=== PATIENT | female | born 1995 | race Caucasian/White ===

== ENCOUNTER 2016-09-30 20:39 | Emergency (ER) | payer MEDICAID ==
[2016-09-30 20:56] VITALS: O2SAT 99
[2016-09-30] MEDS ORDERED: Sodium Chloride 0.9% 1000 ML 1,000 ML IV STA (21:35)
--- NOTE | 2016-09-30 21:41 | ERPHSYRPT ---
- History of Present Illness Time Seen by Provider: 09/30/16 21:31 Source: patient Exam Limitations: no limitations Patient Subjective Stated Complaint: i had a baby on august 17 and ramsey been bleeding since then but the last 3 days its been heavy and ramsey been filling up 2 -3 pads per hour. Triage Nursing Assessment: pt alert and oriented, answers questions approp. skin pink warm and dry. pt ambulatory with steady gait noted. respirations nonlabored with lungs cta. pt states vaginal bleeding has been dark and bright red blood, using 2-3 pads an hour. pt states she has not followed up with her ob since she had her baby. Physician History: This is a 21-year-old 4 para 2 white female status post normal vaginal delivery on August 27, 2016 she states she has had vaginal bleeding ever since delivering. She states that for the past 2-3 days she's had increased vaginal bleeding. She states she has occasional dizziness she has no abdominal pain nausea vomiting she has no other complaints she has no chest pain. Patient has not followed up with her family doctor for recheck after delivery. Past medical history includes abnormal uterine bleeding,. Hypercholesterolemia , anxiety, depression. Patient has had a history of gallstones, and eye surgery. Timing/Duration: other (symptoms since August 17 worse the past several days) Modifying Factors: Improves With: nothing Associated Symptoms: No nausea, No vomiting, No abdominal pain, No shortness of breath, No heartburn, No diaphoresis, No cough, No chills, No chest pain, No fever, No headaches, No loss of appetite, No malaise, No rash, No syncope, No seizure, No weakness Allergies/Adverse Reactions: chocolate flavor Allergy (Severe, Verified 09/30/16 20:57) swells throat lamotrigine [From Lamictal] Allergy (Mild, Verified 09/30/16 20:57) Rash Home Medications: No Home Meds 1 [facility] UD 09/30/16 [History] Hx Tetanus, Diphtheria Vaccination/Date Given: Yes Hx Influenza Vaccination/Date Given: No Hx Pneumococcal Vaccination/Date Given: No Immunizations Up to Date: Yes - Review of Systems Constitutional: No Fever, No Chills Eyes: No Symptoms Ears, Nose, & Throat: No Symptoms Respiratory: No Cough, No Dyspnea Cardiac: No Chest Pain, No Edema, No Syncope Abdominal/Gastrointestinal: No Abdominal Pain, No Nausea, No Vomiting, No Diarrhea Genitourinary Symptoms: Vaginal Bleeding, Other (status post normal vaginal delivery August 17, 2016), No Dysuria, No Frequency, No Hematuria, No Hesitancy, No Incontinence, No Urgency, No Urinary Retention, No Flank Pain, No Menorrhagia, No , No Vaginal Discharge, No Vaginal Itching Musculoskeletal: No Back Pain, No Neck Pain Skin: No Rash Neurological: Dizziness (occasional dizziness), No Focal Weakness, No Gait Changes, No Headache, No Irritability, No Lethargy, No Paralysis, No Parasthesia , No Seizure, No Sensory Changes, No Speech Changes, No Tics, No Tremors, No Vertigo Psychological: No Symptoms Endocrine: No Symptoms All Other Systems: Reviewed and Negative - Past Medical History Pertinent Past Medical History: Yes Neurological History: No Pertinent History ENT History: No Pertinent History Cardiac History: High Cholesterol Respiratory History: No Pertinent History Endocrine Medical History: No Pertinent History Musculoskeletal History: No Pertinent History GI Medical History: No Pertinent History History: No Pertinent History Psycho-Social History: Anxiety, Depression Female Reproductive Disorders: Abnormal Uterine Bleeding, Other Other Medical History: MISCARIAGE NOVEMBER 2014 gall stones. Right eye surgery - Past Surgical History Past Surgical History: Yes Neuro Surgical History: No Pertinent History Cardiac: No Pertinent History Respiratory: No Pertinent History Gastrointestinal: No Pertinent History Genitourinary: No Pertinent History Musculoskeletal: No Pertinent History Female Surgical History: No Pertinent History Other Surgical History: JENNIFER FISTURES--UNSURE OF SPECIFIC--AGE 3 MONTHS OLD - Social History Smoking Status: Former smoker How long have you smoked: 3 Exposure to second hand smoke: Yes Drug Use: none Patient Lives Alone: No - Female History Hx Last Menstrual Period: current - Nursing Vital Signs Nursing Vital Signs: Initial Vital Signs Temperature 97.2 F Temperature Source Oral Pulse Rate 87 Respiratory Rate 18 Blood Pressure 101/60 Pain Intensity 9 - Physical Exam General Appearance: no apparent distress, alert Eye Exam: PERRL/EOMI, eyes nml inspection Ears, Nose, Throat Exam: normal ENT inspection, TMs normal, pharynx normal, moist mucous membranes Neck Exam: normal inspection, non-tender, supple, full range of motion Respiratory Exam: normal breath sounds, lungs clear, No respiratory distress Cardiovascular Exam: regular rate/rhythm, normal heart sounds, normal peripheral pulses Gastrointestinal/Abdomen Exam: soft, normal bowel sounds, No tenderness, No mass Pelvic Exam: other (pelvic examination, normal external female genitalia cervix is closed small amount of bleeding small amount of blood in vaginal vault uterus nontender.) Back Exam: normal inspection, normal range of motion, No CVA tenderness, No vertebral tenderness Extremity Exam: normal inspection, normal range of motion, pelvis stable Neurologic Exam: alert, oriented x 3, cooperative, normal mood/affect, nml cerebellar function, nml station & gait, sensation nml, No motor deficits Skin Exam: normal color, warm, dry, No rash SpO2 Interpretation: normal (99%) SpO2: 99 Oxygen Delivery: Room Air Ordered Tests: Active Orders 24 hr Category Date Time Status IV Insertion STAT Care 09/30/16 21:35 Active Orthostatic Vital Signs STAT Care 09/30/16 21:37 Active Pelvic Exam Assist STAT Care 09/30/16 21:35 Active BMP Stat Lab 09/30/16 21:45 Completed CBC W DIFF Stat Lab 09/30/16 21:45 Completed HCG QUALITATIVE,SERUM Stat Lab 09/30/16 21:45 Completed Manual Differential NC Stat Lab 09/30/16 21:45 Completed Wet Prep Stat Lab 09/30/16 23:30 Completed Medication Summary Discontinued Medications Generic Name Dose Route Start Last Admin Trade Name Freq PRN Reason Stop Dose Admin Sodium Chloride 1,000 mls @ 999 mls/hr 09/30/16 21:35 09/30/16 21:47 Sodium Chloride 0.9% 1000 Ml IV 09/30/16 22:35 999 mls/hr .Q1H1M STA Administration Sodium Chloride Confirm 09/30/16 21:45 Sodium Chloride 0.9% 1000 Ml Administered 09/30/16 21:46 Dose 1,000 mls @ ud .ROUTE .STK-MED ONE Lab/Rad Data: Laboratory Result Diagrams 09/30/16 21:45 09/30/16 21:45 Laboratory Results 09/30/16 09/30/16 09/30/16 Range/Units 23:30 21:45 21:45 WBC (4.0-10.5) K/mm3 RBC (4.1-5.4) M/mm3 Hgb (12.0-16.0) gm/dl Hct (35-47) % MCV (78-100) fl MCH (26-32) pg MCHC (32-36) g/dl RDW (11.5-14.0) % Plt Count (150-450) K/mm3 MPV (6-9.5) fl Segmented Neutrophils (36.0-66.0) % Lymphocytes (Manual) (24-44) % Monocytes (Manual) (0.0-12.0) % Eosinophils (Manual) (0.00-3.0) % Differential Comment Platelet Estimate (NORMAL) Sodium 142 (136-145) mEq/L Potassium 4.5 (3.5-5.1) mEq/L Chloride 107 (98-107) mEq/L Carbon Dioxide 30.0 (21-32) mEq/L Anion Gap 9.3 (5-15) MEQ/L BUN 10 (9-20) mg/dL Creatinine 0.65 (0.55-1.30) mg/dl Estimated GFR > 60 ML/MIN Glucose 84 (70-110) MG/DL Calcium 8.6 (8.5-10.1) mg/dL Serum , Qual NEGATIVE (Negative) WBC (Wet Prep) Rare RBC (Wet Prep) Moderate Epi Cells (Wet Prep) Few Bacteria (Wet Prep) Rare Clue Cells (Wet Prep) None Seen Trichomonas (Wet Prep) None Seen Budding Yeast (Wet Prp) None Seen 09/30/16 Range/Units 21:45 WBC 9.8 (4.0-10.5) K/mm3 RBC 4.45 (4.1-5.4) M/mm3 Hgb 11.6 L (12.0-16.0) gm/dl Hct 37.3 (35-47) % MCV 83.8 (78-100) fl MCH 26.0 (26-32) pg MCHC 31.1 L (32-36) g/dl RDW 14.0 (11.5-14.0) % Plt Count 126 L (150-450) K/mm3 MPV 11.9 H (6-9.5) fl Segmented Neutrophils 63 (36.0-66.0) % Lymphocytes (Manual) 28 (24-44) % Monocytes (Manual) 6 (0.0-12.0) % Eosinophils (Manual) 3 (0.00-3.0) % Differential Comment NORMAL Platelet Estimate DECREASED (NORMAL) Sodium (136-145) mEq/L Potassium (3.5-5.1) mEq/L Chloride (98-107) mEq/L Carbon Dioxide (21-32) mEq/L Anion Gap (5-15) MEQ/L BUN (9-20) mg/dL Creatinine (0.55-1.30) mg/dl Estimated GFR ML/MIN Glucose (70-110) MG/DL Calcium (8.5-10.1) mg/dL Serum , Qual (Negative) WBC (Wet Prep) RBC (Wet Prep) Epi Cells (Wet Prep) Bacteria (Wet Prep) Clue Cells (Wet Prep) Trichomonas (Wet Prep) Budding Yeast (Wet Prp) - Departure Time of Disposition: 00:31 Departure Disposition: Home Clinical Impression: Vaginal bleeding, Status post normal vaginal delivery Condition: Fair Critical Care Time: No Referrals: CAROLYN NASH MD [Primary Care Provider] - Additional Instructions: Return home. Plenty of fluids rest. Nothing in your vagina. Follow-up with your family doctor/interpreter for the deaf call tomorrow morning. Return for acute distress or for severe symptoms.
[2016-09-30] MEDS ORDERED: Sodium Chloride 0.9% 1000 ML 1,000 ML ONE (21:45)
[2016-09-30 22:02] LABS: Mean Cell Volume 83.8 fl (78-100); Mean Platelet Volume 11.9 fl (6-9.5); Platelet Count 126 K/mm3 (150-450); Red Blood Count 4.45 M/mm3 (4.1-5.4); White Blood Count 9.8 K/mm3 (4.0-10.5)
[2016-09-30 22:14] LABS: ANION GAP 9.3 MEQ/L (5-15); BLOOD UREA NITROGEN 10 mg/dL (9-20); CHLORIDE 107 mEq/L (98-107); Glucose 84 MG/DL (70-110); Potassium 4.5 mEq/L (3.5-5.1); SODIUM 142 mEq/L (136-145)
[2016-09-30 23:34] LABS: Eosinophil 3 % (0.00-3.0); Total Cells Counted 100
[2016-09-30 23:35] LABS: Platelet Estimate DECREASED (NORMAL)
[2016-10-01 00:21] LABS: Bacteria Rare; Clue Cells None Seen; Trichomonas None Seen; Yeast None Seen
[2016-10-01 00:44] VITALS: BP 142/88; PULSE 88
[2016-10-01 01:16] LABS: CHLAMYDIA DNA NEGATIVE
== END 2016-10-01 00:43 | disposition home or self-care (01) ==
LOC: ED 20:39
DX: O72.1 Other immediate postpartum hemorrhage (principal)
CPT/HCPCS: 36000; 36415; 80048; 84703; 85025; 87210; 87490; 87590; 96360; 96361; 99283

== ENCOUNTER 2016-11-14 00:05 | Emergency (ER) | payer MEDICAID ==
--- NOTE | 2016-11-14 00:56 | ERPHSYRPT ---
- History of Present Illness Time Seen by Provider: 11/14/16 00:42 Historian: patient Exam Limitations: no limitations Patient Subjective Stated Complaint: pt states shes been having pain from her gallbladder for the last 2 weeks, worse tonight. Triage Nursing Assessment: pt alert and oriented, answers questions approp. pt ambulatory with steady gait noted. skin pink warm and dry. respirations nonlabored with lungs cta. abd soft with tenderness to rt side. pt states she has been passing flatus. Physician History: FOR THE PAST 2 WEEKS PT HAS HAD UPPER ABDOMINAL PAIN AND NAUSEA; FOR THE PAST 2 DAYS SORE THROAT. PT WAS DIAGNOSED WITH CHOLELITHIASIS 2 YEARS AGO BY ULTRASOUND. LMP WAS 10/22/16 BUT SHORTER THAN USUAL, 2 DAYS. PT DENIES VOMITING, DIARRHEA, CHEST PAIN, FEVER. Allergies/Adverse Reactions: chocolate flavor Allergy (Severe, Verified 11/14/16 00:16) swells throat lamotrigine [From Lamictal] Allergy (Mild, Verified 11/14/16 00:16) Rash Home Medications: No Home Meds 1 [facility] UD 09/30/16 [History] Hx Tetanus, Diphtheria Vaccination/Date Given: Yes Hx Influenza Vaccination/Date Given: No Hx Pneumococcal Vaccination/Date Given: No Immunizations Up to Date: Yes - Review of Systems Constitutional: No Fever Ears, Nose, & Throat: Throat Pain Respiratory: No Cough Cardiac: No Chest Pain Abdominal/Gastrointestinal: Abdominal Pain, Nausea, No Vomiting, No Diarrhea Neurological: No Headache Endocrine: No Excessive Sweating All Other Systems: Reviewed and Negative - Past Medical History Pertinent Past Medical History: Yes Neurological History: No Pertinent History ENT History: No Pertinent History Cardiac History: High Cholesterol Respiratory History: No Pertinent History Endocrine Medical History: No Pertinent History Musculoskeletal History: No Pertinent History GI Medical History: No Pertinent History History: No Pertinent History Psycho-Social History: Anxiety, Depression Female Reproductive Disorders: Abnormal Uterine Bleeding, Other Other Medical History: MISCARIAGE NOVEMBER 2014 gall stones. Right eye surgery - Past Surgical History Past Surgical History: Yes Neuro Surgical History: No Pertinent History Cardiac: No Pertinent History Respiratory: No Pertinent History Gastrointestinal: No Pertinent History Genitourinary: No Pertinent History Musculoskeletal: No Pertinent History Female Surgical History: No Pertinent History Other Surgical History: JENNIFER FISTURES--UNSURE OF SPECIFIC--AGE 3 MONTHS OLD - Social History Smoking Status: Current every day smoker How long have you smoked: 3 Exposure to second hand smoke: Yes Drug Use: none Patient Lives Alone: No - Female History Hx Last Menstrual Period: 10/22/16 - Nursing Vital Signs Nursing Vital Signs: Initial Vital Signs Temperature 98.2 F Temperature Source Oral Pulse Rate 98 Respiratory Rate 16 Blood Pressure [Right Arm] 112/63 Pain Intensity 5 - Physical Exam General Appearance: no apparent distress, alert Eye Exam: PERRL/EOMI Ears, Nose, Throat Exam: TMs normal, pharynx normal, moist mucous membranes Neck Exam: normal inspection Respiratory Exam: lungs clear Cardiovascular Exam: normal heart sounds Gastrointestinal/Abdomen Exam: soft, normal bowel sounds, tenderness (MILD SUPRAPUBIC > RUQ TENDERNESS), No guarding Back Exam: normal range of motion Extremity Exam: normal inspection, No pedal edema Neurologic Exam: alert, cooperative Skin Exam: warm, dry SpO2 Interpretation: normal SpO2: 100 Oxygen Delivery: Room Air - Course Nursing assessment & vital signs reviewed: Yes Ordered Tests: Active Orders 24 hr Category Date Time Status Clean Catch Urine Specimen STAT Care 11/14/16 01:11 Active AMYLASE Stat Lab 11/14/16 01:05 Completed CBC W DIFF Stat Lab 11/14/16 01:05 Completed CMP Stat Lab 11/14/16 01:05 Completed CULTURE,URINE Stat Lab 11/14/16 02:00 Ordered HCG QUALITATIVE,SERUM Stat Lab 11/14/16 01:05 Completed LIPASE Stat Lab 11/14/16 01:05 Completed UA W/ MICROSCOPIC Stat Lab 11/14/16 00:28 Completed Urine Triage Profile Stat Lab 11/14/16 00:28 Completed Medication Summary Discontinued Medications Generic Name Dose Route Start Last Admin Trade Name Arianne PRN Reason Stop Dose Admin Acetaminophen/Hydrocodone Bitart 2 tab 11/14/16 02:01 [place] 5/325 Mg PO 11/14/16 02:02 STAT ONE Ceftriaxone Sodium 1,000 mg 11/14/16 02:01 Rocephin 1000 Mg Inj IM 11/14/16 02:02 STAT ONE Lab/Rad Data: Laboratory Result Diagrams 11/14/16 01:05 11/14/16 01:05 Laboratory Results 11/14/16 11/14/16 11/14/16 Range/Units 01:05 01:05 01:05 WBC 12.9 H (4.0-10.5) K/mm3 RBC 4.93 (4.1-5.4) M/mm3 Hgb 12.6 (12.0-16.0) gm/dl Hct 40.3 (35-47) % MCV 81.7 (78-100) fl MCH 25.6 L (26-32) pg MCHC 31.3 L (32-36) g/dl RDW 14.4 H (11.5-14.0) % Plt Count 324 (150-450) K/mm3 MPV 11.3 H (6-9.5) fl Gran % 54.6 (36.0-66.0) % Lymphocytes % 30.8 (24.0-44.0) % Monocytes % 10.7 (0.0-12.0) % Eosinophils % 3.7 (0.00-5.0) % Basophils % 0.2 (0.0-0.4) % Basophils # 0.03 (0-0.4) Sodium 144 (136-145) mEq/L Potassium 3.7 (3.5-5.1) mEq/L Chloride 107 (98-107) mEq/L Carbon Dioxide 26.0 (21-32) mEq/L Anion Gap 14.8 (5-15) MEQ/L BUN 11 (9-20) mg/dL Creatinine 0.74 (0.55-1.30) mg/dl Estimated GFR > 60 ML/MIN Glucose 96 (70-110) MG/DL Calcium 8.9 (8.5-10.1) mg/dL Total Bilirubin 0.2 (0.2-1.0) mg/dL AST 16 (15-37) U/L ALT 33 (12-78) U/L Alkaline Phosphatase 120 H (46-116) U/L Serum Total Protein 7.5 (6.4-8.2) gm/dL Albumin 3.8 (3.4-5.0) g/dL Amylase 53 (25-115) U/L Lipase 192 (73-393) U/L Serum , Qual NEGATIVE (Negative) Ur Collection Type Urine Color (YELLOW) Urine Appearance (CLEAR) Urine pH (5-6) Ur Specific [place] (1.005-1.025) Urine Protein (Negative) Urine Glucose (UA) (NEGATIVE) mg/dL Urine Ketones (NEGATIVE) Urine Nitrite (NEGATIVE) Urine Bilirubin (NEGATIVE) Urine Urobilinogen (0-1) mg/dL Urine WBC (Auto) (NEGATIVE) Urine RBC (Auto) (0-5) Berry/ul Urine Microscopic RBC (0-2) /HPF Urine Microscopic WBC (0-5) /HPF Ur Epithelial Cells (FEW) /HPF Urine Bacteria (NEGATIVE) /HPF Urine Opiates Level (NEGATIVE) Ur Methadone (NEGATIVE) Urine Barbiturates (NEGATIVE) Ur Phencyclidine (PCP) (NEGATIVE) Urine Amphetamine (NEGATIVE) U Benzodiazepine Level (NEGATIVE) Urine Cocaine (NEGATIVE) Urine Marijuana (THC) (NEGATIVE) Specimen Received 11/14/16 11/14/16 Range/Units 00:28 00:28 WBC (4.0-10.5) K/mm3 RBC (4.1-5.4) M/mm3 Hgb (12.0-16.0) gm/dl Hct (35-47) % MCV (78-100) fl MCH (26-32) pg MCHC (32-36) g/dl RDW (11.5-14.0) % Plt Count (150-450) K/mm3 MPV (6-9.5) fl Gran % (36.0-66.0) % Lymphocytes % (24.0-44.0) % Monocytes % (0.0-12.0) % Eosinophils % (0.00-5.0) % Basophils % (0.0-0.4) % Basophils # (0-0.4) Sodium (136-145) mEq/L Potassium (3.5-5.1) mEq/L Chloride (98-107) mEq/L Carbon Dioxide (21-32) mEq/L Anion Gap (5-15) MEQ/L BUN (9-20) mg/dL Creatinine (0.55-1.30) mg/dl Estimated GFR ML/MIN Glucose (70-110) MG/DL Calcium (8.5-10.1) mg/dL Total Bilirubin (0.2-1.0) mg/dL AST (15-37) U/L ALT (12-78) U/L Alkaline Phosphatase (46-116) U/L Serum Total Protein (6.4-8.2) gm/dL Albumin (3.4-5.0) g/dL Amylase (25-115) U/L Lipase (73-393) U/L Serum , Qual (Negative) Ur Collection Type CLEAN CATCH Urine Color YELLOW (YELLOW) Urine Appearance CLEAR (CLEAR) Urine pH 5.5 (5-6) Ur Specific [place] 1.025 (1.005-1.025) Urine Protein NEGATIVE (Negative) Urine Glucose (UA) NEGATIVE (NEGATIVE) mg/dL Urine Ketones NEGATIVE (NEGATIVE) Urine Nitrite NEGATIVE (NEGATIVE) Urine Bilirubin NEGATIVE (NEGATIVE) Urine Urobilinogen 0.2 (0-1) mg/dL Urine WBC (Auto) SMALL (NEGATIVE) Urine RBC (Auto) NEGATIVE (0-5) Berry/ul Urine Microscopic RBC 2-5 (0-2) /HPF Urine Microscopic WBC 5-10 (0-5) /HPF Ur Epithelial Cells MANY (FEW) /HPF Urine Bacteria MODERATE (NEGATIVE) /HPF Urine Opiates Level NEG. (NEGATIVE) Ur Methadone NEG. (NEGATIVE) Urine Barbiturates NEG. (NEGATIVE) Ur Phencyclidine (PCP) NEG. (NEGATIVE) Urine Amphetamine NEG. (NEGATIVE) U Benzodiazepine Level NEG. (NEGATIVE) Urine Cocaine NEG. (NEGATIVE) Urine Marijuana (THC) NEG. (NEGATIVE) Specimen Received 11/14/16 0115 - Departure Time of Disposition: 02:07 Departure Disposition: Home Clinical Impression: UTI Condition: Fair Critical Care Time: No Instructions: Abdominal Pain-Adult, Urinary Tract Infection (UTI) Additional Instructions: FOLLOW UP WITH PRIVATE DOCTOR TOMORROW. Prescriptions: Smz/Tmp Ds Tablet [Bactrim Ds Tablet] 1 udtab PO BID #20 tablet
[2016-11-14 01:15] LABS: BASOPHIL % 0.2 % (0.0-0.4); Eosinophil % 3.7 % (0.00-5.0); Granulocytes % 54.6 % (36.0-66.0); Lymphocytes % 30.8 % (24.0-44.0); Mean Cell Volume 81.7 fl (78-100); Mean Corpuscular Hemoglobin 25.6 pg (26-32); Mean Platelet Volume 11.3 fl (6-9.5); Monocytes % 10.7 % (0.0-12.0); Platelet Count 324 K/mm3 (150-450); Red Blood Count 4.93 M/mm3 (4.1-5.4); Red Cell Distribution Width 14.4 % (11.5-14.0); White Blood Count 12.9 K/mm3 (4.0-10.5)
[2016-11-14 01:35] LABS: Bacteria MODERATE /HPF (NEGATIVE); COMPLETE URINE MICROSCOPIC? YES; Collection Type CLEAN CATCH; Epithelial Cells MANY /HPF (FEW); Ph 5.5 (5-6)
[2016-11-14 01:48] LABS: ALBUMIN 3.8 g/dL (3.4-5.0); ALKALINE PHOSPHATASE 120 U/L (46-116); ANION GAP 14.8 MEQ/L (5-15); BILIRUBIN,TOTAL 0.2 mg/dL (0.2-1.0); BLOOD UREA NITROGEN 11 mg/dL (9-20); CHLORIDE 107 mEq/L (98-107); Glucose 96 MG/DL (70-110); LIPASE 192 U/L (73-393); Potassium 3.7 mEq/L (3.5-5.1); SGOT/AST 16 U/L (15-37); SGPT/ALT 33 U/L (12-78); SODIUM 144 mEq/L (136-145); Total Protein 7.5 gm/dL (6.4-8.2)
[2016-11-14 02:00] VITALS: PULSE 98
[2016-11-14] MEDS ORDERED: Rocephin 1000 MG INJ IM ONE (02:01)
[2016-11-14] MEDS ORDERED: NORCO 5/325 MG PO ONE (02:01)
[2016-11-14] MEDS ORDERED: NORCO 5/325 MG ONE (02:11)
[2016-11-14] MEDS ORDERED: XYLOCAINE 1% HCL 20 ML MDV ONE (02:11)
[2016-11-14] MEDS ORDERED: Rocephin 1000 MG INJ ONE (02:11)
[2016-11-14 02:44] VITALS: BP 108/75; O2SAT 98
== END 2016-11-14 02:43 | disposition home or self-care (01) ==
LOC: ED 00:05
DX: N39.0 Urinary tract infection, site not specified (principal); R10.10 Upper abdominal pain, unspecified; R11.0 Nausea
CPT/HCPCS: 36415; 80053; 80307; 81000; 82150; 83690; 84703; 85025; 87086; 96372; 99283; 99284; J0696

== ENCOUNTER 2017-06-05 13:31 | Emergency (ER) | payer MEDICAID, OTHER ==
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
[2017-06-05 14:38] LABS: BASOPHIL % 0.3 % (0.0-0.4); Eosinophil % 1.3 % (0.00-5.0); Granulocytes % 71.9 % (36.0-66.0); Lymphocytes % 17.4 % (24.0-44.0); Mean Cell Volume 79.2 fl (78-100); Mean Corpuscular Hemoglobin 25.8 pg (26-32); Monocytes % 9.1 % (0.0-12.0); Platelet Count 277 K/mm3 (150-450); Red Blood Count 4.76 M/mm3 (4.1-5.4); Red Cell Distribution Width 14.6 % (11.5-14.0); White Blood Count 12.7 K/mm3 (4.0-10.5)
[2017-06-05 15:26] LABS: Bacteria Many; Clue Cells Few
[2017-06-05 15:27] LABS: Trichomonas None Seen; Yeast None Seen
[2017-06-05 15:45] LABS: ANION GAP 13.6 MEQ/L (5-15); BLOOD UREA NITROGEN 3 mg/dL (9-20); CHLORIDE 106 mEq/L (98-107); Carbon Dioxide 23.7 mEq/L (21-32); Glucose 115 MG/DL (70-110); HCG, Quantitative (Inhouse) 46171 IU/L (0-6); Potassium 3.9 mEq/L (3.5-5.1); SODIUM 139 mEq/L (136-145)
--- NOTE | 2017-06-05 16:07 | XRAY ---
Exam: OB ultrasound less than 14 weeks from 06/05/2017. Comparison: None from this . Indication: Vaginal bleeding. Technique: It appears that the technologist took 2 transabdominal images and then switched to a transvaginal ultrasound exam. An unremarkable shaped and positioned gestational sac is seen within a retroflexed maternal uterus. No subchorionic hemorrhage or abnormal fluid is seen within the endometrial canal. A single live intrauterine pole is seen. The cardiac activity is 119 beats per minute. The crown lump length measures an average of 6.6 mm consistent with a gestational age of 6 weeks 4 days with estimated due date of 01/25/2018. This is 8 days behind that anticipated by the gestational age by dates (LMP). The cardiac catheterization technologist left a note that movement was seen. There appears to be a small adjacent yolk sac. Both maternal ovaries are identified and appear unremarkable oval-shape, size, and echogenicity. Impression: 1. Single live intrauterine fetus within a normal shaped and positioned gestational sac within the upper maternal uterine segment. Incidentally, the maternal uterus is retroflexed. 2. The crown-rump length measures an average of 6.6 mm consistent with a gestational age of 6 weeks 4 days with an estimated due date of 01/25/2018. 3. The heart rate measures 119 bpm.
[2017-06-05 16:10] LABS: ADD URINE CULTURE? NO (NO); Bilirubin NEGATIVE (NEGATIVE); Blood NEGATIVE Ery/ul (0-5); COMPLETE URINE MICROSCOPIC? NO; Collection Type CLEAN CATCH; Glucose NEGATIVE (NEGATIVE); Leukocyte Esterase NEGATIVE (NEGATIVE)
[2017-06-05 16:23] VITALS: BP 103/64; PULSE 79; O2SAT 98
[2017-06-05 16:56] LABS: CHLAMYDIA DNA NEGATIVE
== END 2017-06-05 16:43 | disposition home or self-care (01) ==
LOC: ED 13:31
DX: O20.0 Threatened abortion (principal)
CPT/HCPCS: 36000; 36415; 76801; 80048; 81002; 84702; 85025; 87210; 87490; 87590; 99284

== ENCOUNTER 2018-01-09 00:35 | Inpatient (IN) | payer OTHER ==
[2018-01-09 02:18] LABS: Amphetamine,Urine NEGATIVE (NEGATIVE); Barbiturate,Urine NEGATIVE (NEGATIVE); Benzodiazepine,Urine NEGATIVE (NEGATIVE); Cocaine,Urine NEGATIVE (NEGATIVE); Methadone,Urine NEGATIVE (NEGATIVE); Opiate,Urine NEGATIVE (NEGATIVE); PCP,Urine NEGATIVE (NEGATIVE); THC,Urine NEGATIVE (NEGATIVE)
[2018-01-09] MEDS ORDERED: Lactated Ringers 1,000 ML IV ONE (09:17)
[2018-01-09] MEDS ORDERED: OB EPIDURAL NAROPIN/SUFENTANIL IN NACL EPIDURAL PRN (09:17)
[2018-01-09] MEDS ORDERED: Ephedrine Sulfate 50 MG/ML IV PRN (09:17)
[2018-01-09 09:27] LABS: Granulocyte Absolute (ANC) 8.54 (1.4-6.9); Hematocrit 31.8 % (35-47); Mean Corpuscular Hgb Concent. 31.4 g/dl (32-36); Mean Platelet Volume 12.1 fl (6-9.5); Platelet Count 219 K/mm3 (150-450); Red Blood Count 3.88 M/mm3 (4.1-5.4); Red Cell Distribution Width 15.5 % (11.5-14.0); White Blood Count 13.4 K/mm3 (4.0-10.5)
[2018-01-09] MEDS ORDERED: Lactated Ringers 1,000 ML IV SCH (09:30)
[2018-01-09] MEDS ORDERED: PITOCIN 30 UNITS/ LR 500 ML 500 ML IV SCH (09:30)
[2018-01-09 09:34] LABS: Mean Corpuscular Hemoglobin 25.7 pg (26-32)
[2018-01-09] MEDS ORDERED: XYLOCAINE 1% HCL 20 ML MDV IJ ONE (10:00)
[2018-01-09] MEDS ORDERED: XYLOCAINE 1% HCL 20 ML MDV ONE (10:15)
[2018-01-09 10:24] LABS: Eosinophil 3 % (0.00-3.0); Lymphocytes 24 % (24-44); Neutrophils 73 % (36.0-66.0); Total Cells Counted 100
[2018-01-09 10:25] LABS: Platelet Estimate NORMAL (NORMAL)
[2018-01-09] MEDS ORDERED: Mylicon 80MG PO PRN (12:35)
[2018-01-09] MEDS ORDERED: Dulcolax 10 MG SUPP PR PRN (12:35)
[2018-01-09] MEDS ORDERED: Ambien 10 MG PO PRN (12:35)
[2018-01-09] MEDS ORDERED: TUCKS TP PRN (12:35)
[2018-01-09] MEDS ORDERED: CORTISONE 1% CREAM TP PRN (12:35)
[2018-01-09] MEDS ORDERED: Dermoplast Spray TP PRN (12:35)
[2018-01-09] MEDS ORDERED: LANSINOH 40 GM TOP PRN (12:35)
[2018-01-09] MEDS ORDERED: TYLENOL EXTRA STRENGTH 500 MG PO PRN (12:35)
[2018-01-09] MEDS ORDERED: Anucort-HC SUPPOSITORY PR PRN (12:35)
[2018-01-09] MEDS ORDERED: NORCO 5/325 MG PO PRN (12:35)
[2018-01-09 14:14] VITALS: O2SAT 100
[2018-01-09] MEDS: Colace 100 MG PO SCH (21:02)
[2018-01-09] MEDS: MOTRIN 400 MG PO PRN (21:10)
[2018-01-10] MEDS: MOTRIN 400 MG PO PRN ×2 (04:14→19:33)
[2018-01-10 05:52] LABS: Granulocyte Absolute (ANC) 8.17 (1.4-6.9); Hematocrit 28.7 % (35-47); Hemoglobin 8.9 gm/dl (12.0-16.0); Mean Cell Volume 83.2 fl (78-100); Mean Platelet Volume 12.2 fl (6-9.5); Platelet Count 204 K/mm3 (150-450); Red Blood Count 3.45 M/mm3 (4.1-5.4); Red Cell Distribution Width 15.4 % (11.5-14.0); White Blood Count 12.9 K/mm3 (4.0-10.5)
[2018-01-10 05:59] LABS: Mean Corpuscular Hemoglobin 25.7 pg (26-32)
[2018-01-10 06:39] LABS: Eosinophil 2 % (0.00-3.0); Lymphocytes 24 % (24-44); Monocyte 10 % (0.0-12.0); Neutrophils 64 % (36.0-66.0); Platelet Estimate NORMAL (NORMAL); Total Cells Counted 100
[2018-01-10] MEDS: FERREX 150 PO SCH (10:16)
[2018-01-10] MEDS: Colace 100 MG PO SCH ×2 (10:16→21:36)
[2018-01-11] MEDS: MOTRIN 400 MG PO PRN (04:53)
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
[2018-01-11 09:27] VITALS: BP 115/64; PULSE 67
[2018-01-11] MEDS: FERREX 150 PO SCH (10:30)
[2018-01-11] MEDS: Colace 100 MG PO SCH (10:30)
== END 2018-01-11 13:30 | disposition home or self-care (01) | DRG 775 ==
LOC: OB 00:35 → EEVIPCON 09:02 → OBSVTOIN 09:02
PROVIDERS: ADMIT Family Medicine; ATTEND Family Medicine
PROC: 10E0XZZ Delivery of Products of Conception, External Approach (ICD-10-PCS; principal; 2018-01-09)
DX: O80 Encounter for full-term uncomplicated delivery (principal); Z3A.37 37 weeks gestation of pregnancy; Z37.0 Single live birth
CPT/HCPCS: 36415; 80307; 85025; 87086; G0378; J2590; J2795; A9270-GY

== ENCOUNTER 2018-01-27 23:58 | Emergency (ER) | payer SELFPAY ==
[2018-01-28] MEDS ORDERED: Adacel Vial IM ONE ×2 (00:15→00:20)
[2018-01-28] MEDS ORDERED: Sodium Chloride 0.9% 1000 ML 1,000 ML IV STA (00:15)
[2018-01-28] MEDS ORDERED: Sodium Chloride 0.9% 1000 ML 1,000 ML ONE (00:19)
[2018-01-28 00:20] VITALS: O2SAT 97
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
[2018-01-28 01:01] LABS: BASOPHIL % 0.2 % (0.0-0.4); Basophil (Absolute #) 0.03 (0-0.4); Eosinophil % 1.5 % (0.00-5.0); Eosinophil (Absolute #) 0.21 (0-0.5); Granulocyte Absolute (ANC) 10.59 (1.4-6.9); Granulocytes % 76.9 % (36.0-66.0); Hematocrit 37.5 % (35-47); Hemoglobin 11.8 gm/dl (12.0-16.0); Lymphocyte (Absolute #) 1.98 (1.0-4.6); Lymphocytes % 14.4 % (24.0-44.0); Mean Cell Volume 81.5 fl (78-100); Mean Corpuscular Hgb Concent. 31.5 g/dl (32-36); Mean Platelet Volume 11.5 fl (6-9.5); Monocyte (Absolute #) 0.96 (0.0-1.3); Platelet Count 359 K/mm3 (150-450); Red Cell Distribution Width 14.9 % (11.5-14.0); White Blood Count 13.8 K/mm3 (4.0-10.5)
[2018-01-28 01:16] LABS: Mean Corpuscular Hemoglobin 25.6 pg (26-32)
[2018-01-28 01:23] LABS: ALBUMIN 3.8 g/dL (3.5-5.0); ALKALINE PHOSPHATASE 111 U/L (38-126); ANION GAP 14.9 MEQ/L (5-15); BLOOD UREA NITROGEN 16 mg/dL (7-17); CHLORIDE 107 mmol/L (98-107); Calcium 9.1 mg/dL (8.4-10.2); Carbon Dioxide 23 mmol/L (22-30); Creatinine 1 0.56 mg/dL (0.52-1.04); Glucose 117 mg/dL (74-106); LIPASE 118 U/L (23-300); Potassium 4.4 mmol/L (3.5-5.1); SGOT/AST 22 U/L (14-36); SGPT/ALT 23 U/L (0-35); SODIUM 140 mmol/L (137-145); Total Protein 6.8 g/dL (6.3-8.2)
[2018-01-28 01:25] LABS: ETHYL ALCOHOL < 10 mg/dL (0-10)
[2018-01-28 01:44] VITALS: BP 94/66; PULSE 95
[2018-01-28 02:05] LABS: Appearance CLEAR (CLEAR); Bilirubin NEGATIVE (NEGATIVE); Blood NEGATIVE Ery/ul (0-5); Glucose NEGATIVE (NEGATIVE); Ketones NEGATIVE (NEGATIVE); Leukocyte Esterase 1+ (NEGATIVE); Nitrite NEGATIVE (NEGATIVE); Protein,Urine Dip TRACE (Negative); Urobilinogen NORMAL mg/dL (0-1)
[2018-01-28 02:05] LABS: INR 1.08 (0.8-3.0)
[2018-01-28 02:06] LABS: Bacteria RARE /HPF (NEGATIVE); Epithelial Cells FEW /HPF (FEW)
[2018-01-28 02:10] LABS: Amphetamine,Urine NEGATIVE (NEGATIVE); Barbiturate,Urine NEGATIVE (NEGATIVE); Benzodiazepine,Urine NEGATIVE (NEGATIVE); Cocaine,Urine NEGATIVE (NEGATIVE); Methadone,Urine NEGATIVE (NEGATIVE); Opiate,Urine NEGATIVE (NEGATIVE); PCP,Urine NEGATIVE (NEGATIVE); THC,Urine NEGATIVE (NEGATIVE)
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
== END 2018-01-28 03:50 | disposition home or self-care (01) ==
LOC: ED 23:58
DX: S30.1XXA Contusion of abdominal wall, initial encounter (principal); S80.211A Abrasion, right knee, initial encounter; R10.9 Unspecified abdominal pain; R11.0 Nausea; Y04.0XXA Assault by unarmed brawl or fight, initial encounter
CPT/HCPCS: 36000; 36415; 71045; 73000; 73562; 74177; 80053; 80307; 81000; 83690; 85025; 85610; 85730; 90471; 90715; 99284; G0480

== ENCOUNTER 2021-04-15 19:56 | Emergency (ER) | payer OTHER ==
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
[2021-04-15 21:08] LABS: Appearance SLIGHTLY CLOUDY (CLEAR); Bilirubin NEGATIVE (NEGATIVE); Blood NEGATIVE Ery/ul (0-5); Epithelial Cells RARE /HPF (FEW); Glucose NEGATIVE (NEGATIVE); Ketones NEGATIVE (NEGATIVE); Leukocyte Esterase SMALL (NEGATIVE); Nitrite NEGATIVE (NEGATIVE); Protein,Urine Dip NEGATIVE (Negative); RBC 0-2 /HPF (0-2); Specific Gravity 1.025 (1.005-1.025); Urobilinogen NEGATIVE mg/dL (0-1)
[2021-04-15 21:15] VITALS: BP 128/74
[2021-04-15] MEDS ORDERED: Ativan 2 MG/1 ML VIAL IM ONE (21:19)
[2021-04-15] MEDS ORDERED: KEFLEX 500 MG PO ONE (21:19)
[2021-04-15 21:20] LABS: Amphetamine,Urine NEGATIVE (NEGATIVE); Barbiturate,Urine NEGATIVE (NEGATIVE); Benzodiazepine,Urine NEGATIVE (NEGATIVE); Cocaine,Urine NEGATIVE (NEGATIVE); Methadone,Urine NEGATIVE (NEGATIVE); Opiate,Urine NEGATIVE (NEGATIVE); PCP,Urine NEGATIVE (NEGATIVE); THC,Urine NEGATIVE (NEGATIVE)
[2021-04-15] MEDS ORDERED: Ativan 2 MG/1 ML VIAL ONE (21:37)
[2021-04-15] MEDS ORDERED: KEFLEX 500 MG ONE (21:38)
[2021-04-15 22:14] VITALS: PULSE 77; O2SAT 96
== END 2021-04-15 22:14 | disposition home or self-care (01) ==
LOC: ED 19:56
DX: N39.0 Urinary tract infection, site not specified (principal)
CPT/HCPCS: 80307; 81001; 84703; 96372; 99284; J2060; A9270-GY